=== PATIENT | female | born 1965 | race Caucasian/White ===

== ENCOUNTER 2022-03-30 15:34 | Outpatient (CLI) | payer BC | END 2022-03-30 15:35 | disposition home or self-care (01) | LOC: CSHULT 15:34 | PROVIDERS: ATTEND Internal Medicine Endocrinology, Diabetes & Metabolism | DX: E04.1 Nontoxic single thyroid nodule (principal); Q96.9 Turner's syndrome, unspecified | CPT/HCPCS: 76536 ==